=== PATIENT | female | born 1980 | race Caucasian/White ===

== ENCOUNTER 2022-05-30 08:47 | Outpatient (CLI) | payer BC | END 2022-05-30 08:48 | disposition home or self-care (01) | LOC: CSHULT 08:47 | PROVIDERS: ATTEND Advanced Practice Midwife | DX: N63.24 Unspecified lump in the left breast, lower inner quadrant (principal) ==

== ENCOUNTER 2023-03-30 08:39 | Outpatient (CLI) | payer BC | END 2023-03-30 08:40 | disposition home or self-care (01) | LOC: CSHMAMMO 08:39 | PROVIDERS: ATTEND Student in an Organized Health Care Education/Training Program | DX: N63.22 Unspecified lump in the left breast, upper inner quadrant (principal); N63.24 Unspecified lump in the left breast, lower inner quadrant; R92.8 Other abnormal and inconclusive findings on diagnostic imaging of breast | CPT/HCPCS: 77066; G0279 ==

== ENCOUNTER 2025-06-04 12:45 | Outpatient (CLI) | payer BC ==
[2025-06-04 13:43] LABS: Hematocrit 38.9 % (34.9-44.5); Hemoglobin 13.0 g/dL (12.0-15.5); Mean Corpuscular Hemoglobin 28.4 pg (27.0-33.0); Mean Corpuscular Volume 85.1 fL (81.6-98.3); Platelet Count 365 10x3/uL (150-450); Red Blood Cell (RBC) Count 4.57 10x6/uL (3.90-5.03); White Blood Cell (WBC) Count 7.57 10x3/uL (3.5-10.5)
[2025-06-04 14:12] LABS: BHCG - Serum Negative (NEGATIVE); Pregs Control Background? CLEAR/WHITE (CLR/WHITE); Pregs Control Bar Appear? YES (CONTROL BAR)
[2025-06-04 14:46] LABS: Anion Gap 12 mmol/L (10-20); BUN (Urea Nitrogen) 24 mg/dL (7.0-18.7); Calc. Creatinine Clearance 0 mL/min (70-130); Calcium 9.3 mg/dL (7.8-10.44); Carbon Dioxide 21 mmol/L (22-29); Chloride 107 mmol/L (98-107); Glucose 101 mg/dL (70-105); Potassium 3.9 mmol/L (3.5-5.1); Sodium 136 mmol/L (136-145)
== END 2025-06-04 12:46 | disposition home or self-care (01) ==
LOC: CSHLAB 12:45
PROVIDERS: ATTEND Obstetrics & Gynecology
DX: Z01.818 Encounter for other preprocedural examination (principal); N92.0 Excessive and frequent menstruation with regular cycle
CPT/HCPCS: 80048; 84703; 85027; 93005; 93010

== ENCOUNTER 2025-06-08 05:50 | Day surgery (SDC) | payer BC ==
[2025-06-04 13:21] VITALS: BMI 45.1
[2025-06-08] MEDS ORDERED: metroNIDAZOLE 500 MG (100 mL) BAG ONE (06:34)
[2025-06-08] MEDS ORDERED: PROPOFOL 40 ML ONE (06:39)
[2025-06-08] MEDS ORDERED: SUCCINYLCHOLINE/SOD CL,ISO/PF 200 MG/10 ML SYRINGE FS ONE (06:39)
[2025-06-08] MEDS ORDERED: Ketorolac Tromethamine 30 MG (1 mL) VIAL ONE (06:40)
[2025-06-08] MEDS ORDERED: Ondansetron PF 4 MG/2 ML Vial ONE (06:41)
[2025-06-08] MEDS ORDERED: Silver Nitrate Application 1 EACH ONE (06:44)
[2025-06-08] MEDS ORDERED: CEFAZOLIN 2 GM VIAL ONE (06:52)
== END 2025-06-08 09:12 | disposition home or self-care (01) ==
LOC: CSHSDC 05:50
PROVIDERS: ATTEND Obstetrics & Gynecology
PROC: 0UDB8ZZ Extraction of Endometrium, Via Natural or Artificial Opening Endoscopic (ICD-10-PCS; principal; 2025-06-08)
DX: D25.9 Leiomyoma of uterus, unspecified (principal); N92.4 Excessive bleeding in the premenopausal period
CPT/HCPCS: 88305; J1100; J1885; J2250; J2405; J2704; J3010